=== PATIENT | female | born 1990 | race Caucasian/White ===

== ENCOUNTER 2025-02-04 10:50 | Emergency (ER) | payer BC, SELFPAY ==
[2025-02-04 10:50] VITALS: BMI 33.2
[2025-02-04 10:53] VITALS: BP 138/91
--- NOTE | 2025-02-04 11:17 | ED.GENMED ---
History of Present Illness
General
Chief Complaint: Chest Pain
Time Seen by Provider: 02/04/25 11:17
History of Present Illness
History of Present Illness:
FOCUSED PAST MEDICAL HISTORY
- No significant past medical history
REVIEW OF OLD RECORDS
- No old records available for review in [facility]
Note:
CHIEF COMPLAINT(S)
Chest pain and back pain.
HISTORY OF PRESENT ILLNESS
The patient is a 34-year-old female presenting with chest and back pain since Saturday. The pain is described as internal and is alleviated when the patient is standing or lifting her arms. Standing brings upon pressure in the chest area. The patient
noted fever on Saturday, with the maximum temperature reaching 100.7�F. She denies any shortness of breath or dizziness. On physical exertion, the pain appears to worsen, particularly when standing.
PHYSICAL EXAM
- General: Well appearing in no distress
- HEENT: Moist oral mucosa
- Cardiovascular: No murmurs, normal heart rate, regular rhythm, no significant tenderness to palpation of the anterior chest wall, the patient did note some discomfort when she stood up and took a few steps
- Pulmonary: No respiratory distress, breath sounds are clear and equal
- Abdomen: Soft with no peritoneal signs, no tenderness
- Neurologic: Excellent strength all extremities, no coordination deficits
- Psychiatric: Appropriate mental status, normal insight and judgement
- Extremities: Nontender, no edema, moves all extremities equally
- Skin: No rash, no lesions, no evidence of zoster
PLAN
- Conduct cardiac blood work and basic laboratory evaluations.
- Administer ketorolac (Tordal) for its anti-inflammatory effects.
- Obtain a chest X-ray to assess for any structural abnormalities.
- Monitor patient response and re-evaluate after interventions.
DIFFERENTIAL DIAGNOSIS
The Differential Diagnosis includes, in no particular order and is not limited to:
- Costochondritis
- Myocardial infarction
- Pulmonary embolism
- Gastroesophageal reflux disease (GERD)
- Musculoskeletal pain
- Aortic dissection
- Pneumonia
- Viral infection
- Anxiety
- Pleuritis
EMERGENCY TREATMENTS ADMINISTERED
Ketorolac (Toradol) was administered for its anti-inflammatory properties.
MEDICATION RECONCILIATION
Ketorolac (Toradol) administered as an anti-inflammatory and pain management during the visit.
MEDICAL DECISION MAKING
-Complexity of Data Reviewed: The patients symptoms and the possibility of myocardial infarction, among others.
-Data:
Category 1
- Cardiac and other basic laboratory panels were ordered for evaluation.
- Plan to perform a chest X-ray.
Category 2
Clinical information was gathered directly from the patient regarding the onset and character of symptoms.
-Risk:
Prescription drug management was provided via ketorolac. Consideration of Admission/Observation: Escalation of care including admission/observation was considered given the complexity and risk of the patients presenting complaint, exam findings,
and/or their underlying comorbidities. However, ultimately, the patient is safe for outpatient management with close follow-up. Reasoning: Work-up reassuring, does not reveal any acute life/organ-threatening processes, patients symptoms were well
controlled upon reevaluation, reexamination is reassuring, vitals are stable, patient agreeable with discharge, reliable for follow-up.
DIAGNOSIS
- Chest pain, unspecified (ICD-10: R07.9)
- Muscle pain (ICD-10: M79.1)
RADIOLOGY
- Chest x-ray by my read shows no acute abnormality
EKG
- Sinus 90, normal axis, nonspecific ST abnormality
LABS
- White count normal, hemoglobin normal, chemistries unremarkable, troponin less than 0.012
UPDATE
- The patient declined analgesia.
SUMMARY OF ENCOUNTER
The patient, a 34-year-old female, presented to the emergency department with chest and back pain. The pain was described as internal, worsening upon physical exertion and standing, but alleviated when lifting arms. She experienced fever but denied
shortness of breath and dizziness. After examination, her oxygen levels were found to be excellent, with no signs of myocardial infarction or blood clots. An ECG was conducted and returned normal. The chest X-ray, awaiting radiologist confirmation,
showed no apparent signs of pneumonia or other concerns. The discussion suggested the pain might be due to inflammation, likely musculoskeletal or costochondritis.
PLAN
Recommend using [id number] ibuprofen (Motrin) at a prescription strength of 600-800 mg every eight hours for anti-inflammatory effects if needed. The patient can also consider using acetaminophen (Tylenol) in conjunction with ibuprofen for
pain management, ensuring not to overdose.
INDEPENDENT REVIEW OF LABS AND INTERPRETATION OF TESTS
My independent review of oxygen levels indicates they are 100%. My independent review of ECG indicates a normal result without any signs suggestive of myocardial infarction.
MEDICATION RECONCILIATION
No ketorolac (Toradol) administered during this visit per conversation. Recommend Motrin (ibuprofen) for anti-inflammatory purposes and acetaminophen (Tylenol) for managing pain.
MEDICAL DECISION MAKING
- Complexity of Data Reviewed: Differential Diagnosis includes costochondritis, myocardial infarction, pulmonary embolism, gastroesophageal reflux disease (GERD), musculoskeletal pain, aortic dissection, pneumonia, viral infection, anxiety, and
pleuritis.
- Data:
Category 1: Tests such as ECG and chest X-ray were conducted with results reviewed.
Category 2: Clinical information was gathered from direct conversation with the patient to ascertain the onset and character of symptoms.
- Risk: Prescription drug management discussed, recommended [id number] anti-inflammatory and analgesic usage with appropriate patient education to prevent overdose.
DIAGNOSIS
- Chest pain, unspecified (ICD-10: R07.9)
- Muscle pain (ICD-10: M79.1)
Phy Exam
Physical Exam
Physical Exam:
See HPI
Scores
Heart Score for Chest Pain Patients
STEMI patient?: Not applicable
PERC Rule Criteria
Age <50 years: Yes
HR <100 bpm: Yes
Room air oxygen sat >94%: Yes
History of DVT or PE: No
Recent trauma or surgery: No
Hemoptysis: No
Exogenous estrogen: No
Clinical signs suggestive of DVT: No
: No
Considered low risk for PE: Yes
PERC Score: 0
PE can be excluded by PERC: Yes
Course
Orders/Labs/Results
Orders:
Orders
02/04/25 10:55
Electrocardiogram (*1) Urgent
Reason for Study: Chest Pain
EKG- Treatment ONCE
02/04/25 11:25
CR Chest - 2 Views Urgent
Comment:
Reason For Exam: CP; resolved fever
02/04/25 11:26
Ketorolac [Toradol] 15 mg IV NOW STA
02/04/25 11:31
Complete Blood Count/With Diff Urgent
Comprehensive Metabolic Panel Urgent
Troponin I Urgent
Abnormal Lab Results
02/04/25
11:31
MCH 26.7 L pg
(27.0-31.0)
MCHC 32.8 L g/dL
(33.0-37.0)
Absolute Lymphs (auto) 3.7 H 10^3/uL
(1.2-3.4)
Chloride 108 H mmol/L
(98-107)
BUN 5 L mg/dl
(7-17)
02/04/25 11:31
02/04/25 11:31
Vital Signs
Initial and Last Documented VS:
Initial Vital Signs
Temp Pulse Resp BP Pulse Ox
36.9 C 87 16 138/91 99
02/04/25 10:53 02/04/25 10:53 02/04/25 10:53 02/04/25 10:53 02/04/25 10:53
Last Documented Vital Signs
Temp Pulse Resp BP Pulse Ox
36.9 C 94 29 113/93 99
02/04/25 10:53 02/04/25 12:30 02/04/25 12:30 02/04/25 12:01 02/04/25 12:30
*Pulse Oximetry
SaO2: 99
Oxygen Mode of Delivery: Room air
Patient hypoxic: no
*Critical Care Note
Total Time (30-74mins, 75-104mins- exclusive of procedures): Not Applicable
ED Attending Note
-
Portions of this chart may have been created with voice recognition software.� Occasional wrong word or��sound alike� substitutions may have occurred due to the inherent limitations of voice recognition software.
Discharge Plan
Departure
Referrals:
Vinay Flannery, DO [Family Provider]
Interventions
Interventions:
*Risk Screen - Suicide Last Done: 02/04/25 10:55
*General Assessment Last Done: 02/04/25 11:20
*Neglect/Abuse Screening Last Done: 02/04/25 10:55
*ED- Fall Risk Assessment Last Done: 02/04/25 11:20
ED- Cardiac Assessment Last Done: 02/04/25 11:20
Discharge Date and Time
Print Language: GAMBIAN
[2025-02-04 11:19] VITALS: BP 108/94
[2025-02-04 11:39] LABS: Hematocrit 42.1 % (37.0-47.0); Hemoglobin 13.8 g/dL (12.0-16.0); Mean Corp Hgb Conc. 32.8 g/dL (33.0-37.0); Mean Corpuscular Volume 81.4 fL (81.0-99.0); Nucleated Red Blood Cells % 0 %; Platelet Count 285 10^3/uL (130-400); Red Cell Dist. Width 13.2 % (11.5-14.5)
[2025-02-04 12:01] VITALS: BP 113/93
[2025-02-04 12:02] LABS: ALT (SGPT) 17 U/L (0-35); AST (SGOT) 22 U/L (14-36); Albumin 4.2 g/dl (3.5-5.0); Alkaline Phosphatase 73 U/L (38-126); Blood Urea Nitrogen 5 mg/dl (7-17); Calcium 9.2 mg/dl (8.4-10.2); Carbon Dioxide 24 mmol/L (22-30); Chloride 108 mmol/L (98-107); Estimated Creatinine Clearance 95 ml/min; Glucose 79 mg/dl (70-99); Potassium 4.3 mmol/L (3.5-5.1); Sodium 136 mmol/L (135-145); Total Protein 7.0 g/dl (6.3-8.2); eGFR > 60.00
[2025-02-04 12:11] LABS: Troponin I < 0.012 ng/ml
== END 2025-02-04 13:03 | disposition home or self-care (01) ==
LOC: EMR 10:50
PROVIDERS: EMERGENCY PHYSICIAN Emergency Medicine; FAMILY PHYSICIAN Family Medicine
DX: R07.89 Other chest pain (principal); M54.9 Dorsalgia, unspecified
CPT/HCPCS: 99285; 71046; 80053; 84484; 85025; 93005